=== PATIENT | male | born 1945 | race Caucasian/White ===

== ENCOUNTER → 2018-07-30 | Outpatient (CLI) | payer MEDICARE ==
[~2018-07-30] MED LIST: AMLODIPINE BESY10 MG PO; COLACE 100 MG100 MG PO; COUMADIN 5 MG TA5 M1 PO; ENOXAPARIN40 MG/0.1 SUBQ; HYDROCODON-ACE1 EAC7 PO; LISINOPRIL20 MG PO; METAMUCIL PACK3.4 GM PO; MULTI-VITAMIN1 EAC5 PO; OXYCODONE HCL 55 MG PO; TYLENOL325 MG PO
--- NOTE | 2018-07-30 14:01 | 2DMMODE ---
[place] [address] 2 D/M-MODE ECHOCARDIOGRAM Name: THELMA ROSAS [id number] Admission: 07/30/18 Attend Phys: Nava Rodas Discharge: Date of : 49 Date of Service: 07/30/18 1400 Report #: [id number] THIS REPORT FOR: //name// APPROVED REPORT Study performed: 07/30/2018 08:58:57 EXAM: Comprehensive 2D, Doppler, and color-flow Echocardiogram Patient Location: Out-Patient Status: routine BSA: 2.44 HR: 75 bpm BP: 150/80 mmHg Other Information Study Quality: Fair Indications Aortic Valve Disease Hypertension/HDD Aortic valve replacement 2D Dimensions IVSd: 16.12 (7-11mm) LVOT Diam: 21.99 (18-24mm) LVDd: 55.92 mm PWd: 13.78 (7-11mm) Ascending Ao: 34.33 (22-36mm) LVDs: 35.00 (25-40mm) Aortic Root: 37.43 mm Volumes Left Atrial Volume (Systole) LA ESV Index: 19.10 mL/m2 Aortic Valve AoV Peak Luis Carlos.: 2.25 m/s AO Peak Gr.: 20.23 mmHg LVOT Max P.94 mmHg AO Mean Gr.: 10.88 mmHg LVOT Mean P.60 mmHg LVOT Max V: 0.86 m/s AO V2 VTI: 47.07 cm LVOT Mean V: 0.59 m/s ALEX (VTI): 1.68 cm2 LVOT V1 VTI: 20.79 cm Mitral Valve E/A Ratio: 0.93 MV Decel. Time: 234.13 [place] [address] 2 D/M-MODE ECHOCARDIOGRAM Name: THELMA ROSAS Room: [facility]#: [id number] Admission: 07/30/18 Attend Phys: Nava Rodas Discharge: Date of : 49 Date of Service: 07/30/18 [facility] Report #: [id number] MV E Max Luis Carlos.: 0.96 m/s MV PHT: 67.90 ms MVA (PHT): 3.24 cm2 TDI E/Lateral E': 10.67 E/Medial E': 16.00 Medial E' Luis Carlos.: 0.06 m/s Lateral E' Luis Carlos.: 0.09 m/s Pulmonary Valve PV Peak Luis Carlos.: 1.04 m/s PV Peak Gr.: 4.32 mmHg Left Ventricle The left ventricle is normal size. There is normal LV segmental wall motion. Paradoxical septal motion consistent with paced rhythm. Mild concentric left ventricular hypertrophy. Left ventricular systolic function is normal. The left ventricular ejection fraction is within the normal range. LVEF is 50-55%. Grade I - abnormal relaxation pattern. Right Ventricle The right ventricle is normal size. The right ventricular systolic function is normal. Atria Left atrium is moderately dilated. The right atrium size is normal. Aortic Valve Poorly visualized AVR structure. Mechanical aortic valve is present. [facility] Mild aortic regurgitation. There is no aortic valvular stenosis.mean gradient <15mmHg. Mitral Valve There is mild mitral annular calcification. Mitral valve leaflets are mildly thickened. There is no mitral valve regurgitation noted. No evidence of mitral valve stenosis. Tricuspid Valve The tricuspid valve is normal in structure. There is no tricuspid valve regurgitation noted. Pulmonic Valve The pulmonary valve is normal in structure. [place] [address] 2 D/M-MODE ECHOCARDIOGRAM Name: THELMA ROSAS Room: [facility]#: [id number] Admission: 07/30/18 Attend Phys: Nava Rodas Discharge: Date of : 49 Date of Service: 07/30/18 1400 Report #: [id number] Great Vessels The aortic root is normal in size. IVC is normal in size and collapses >50% with inspiration. Pericardium There is no pericardial effusion. <Conclusion> LVEF is 50-55%. There is normal LV segmental wall motion. Mechanical aortic valve is present. [facility] There is no aortic valvular stenosis.mean gradient <15mmHg. Mild aortic regurgitation. There is mild mitral annular calcification. Mitral valve leaflets are mildly thickened. No evidence of mitral valve stenosis. There is no mitral valve regurgitation noted. Left atrium is moderately dilated. Grade I - abnormal relaxation pattern. <ELECTRONICALLY SIGNED> By: Rufus Samaniego MD, FACC 07/30/18 1400 1400 1400 Rufus Samaniego MD, FACC /INF
== END ==
LOC: M.CRD 08:45
DX: I10 Essential (primary) hypertension (principal); I35.1 Nonrheumatic aortic (valve) insufficiency; Z95.2 Presence of prosthetic heart valve; Z95.4 Presence of other heart-valve replacement

== ENCOUNTER 2019-05-19 18:29 | Emergency (ER) | payer MEDICARE ==
[~2019-05-19] VITALS: Ht 177.8 cm; Wt 127.0 kg
[2019-05-19 19:35] LABS: ABSOLUTE BASOPHILS 0.1 thou/uL (0.0-0.2); ABSOLUTE EOSINOPHILS 0.3 thou/uL (0.0-0.7); ABSOLUTE LYMPHOCYTES 1.6 thou/uL (0.8-5.3); ABSOLUTE MONOCYTES 0.4 thou/uL (0.0-1.2); ABSOLUTE NEUTROPHILS 5.5 thou/uL (1.6-8.1); EOSINOPHILS 3.3 %; HEMATOCRIT 34.3 % (42.0-52.0); HEMOGLOBIN 11.7 gm/dL (14.0-18.0); LYMPHOCYTES 20.2 %; MCH 28.8 pg (26.0-34.0); MCHC 34.2 g/dL (28.0-37.0); MCV 84.3 fL (80.0-100.0); MONOCYTES 5.3 %; MPV 6.5 fl. (7.2-11.1); NUCLEATED RBCS 0 /100WBC; PLATELET COUNT* 237 thou/uL (150-400); POLYS 70.2 %; RBC 4.07 mil/uL (4.50-6.00); RDW-CV 14.9 % (10.5-14.5); WBC 7.8 thou/uL (4.0-11.0)
[2019-05-19 19:42] LABS: INR 2.3; PROTIME 22.9 Seconds (9.20-11.50)
[2019-05-19 19:43] LABS: CALCIUM 8.8 mg/dL (8.5-10.1); CREATININE 1.1 mg/dL (0.6-1.3); POTASSIUM 4.2 mmol/L (3.5-5.1)
[2019-05-19 19:47] LABS: ALBUMIN 3.8 g/dL (3.4-5.0); TOTAL BILIRUBIN 0.3 mg/dL (<0.1-1.0); TOTAL PROTEIN 6.9 g/dL (6.4-8.2)
[2019-05-19 20:49] VITALS: BP 145/80
== END 2019-05-19 20:50 | disposition home or self-care (01) ==
LOC: M.ERS 18:29
PROVIDERS: Emergency Medicine
DX: K64.4 Residual hemorrhoidal skin tags (principal); K92.1 Melena; F17.200 Nicotine dependence, unspecified, uncomplicated; Z86.2 Personal history of diseases of the blood and blood-forming organs and certain disorders involving the immune mechanism; Z88.5 Allergy status to narcotic agent

== ENCOUNTER → 2019-07-30 | Outpatient (CLI) | payer MEDICARE ==
--- NOTE | 2019-07-30 13:45 | 2DMMODE ---
[place] [address] 2 D/M-MODE ECHOCARDIOGRAM Name: THELMA ROSAS [facility] [id number] Admission: 07/30/19 Attend Phys: Nava Rodas Discharge: Date of : 49 Date of Service: 07/30/19 1344 Report #: [id number] THIS REPORT FOR: cc: Ioana Tucker,Ioana Naranjo,Patrick Gomez MD [facility] ~ THIS REPORT FOR: //name// APPROVED REPORT Study performed: 07/30/2019 08:47:23 EXAM: Comprehensive 2D, Doppler, and color-flow Echocardiogram Patient Location: Out-Patient BSA: 2.43 HR: 80 bpm BP: 130/60 mmHg Other Information Study Quality: Fair Indications Aortic Valve Disease Hypertension/HDD 2D Dimensions IVSd: 15.91 (7-11mm) LVOT Diam: 21.09 (18-24mm) LVDd: 57.40 mm PWd: 14.11 (7-11mm) Ascending Ao: 36.24 (22-36mm) LVDs: 44.25 (25-40mm) Aortic Root: 36.92 mm Volumes Left Atrial Volume (Systole) LA ESV Index: 27.20 mL/m2 Aortic Valve AoV Peak Luis Carlos.: 2.61 m/s AO Peak Gr.: 27.22 mmHg LVOT Max P.04 mmHg AO Mean Gr.: 14.77 mmHg LVOT Mean P.62 mmHg LVOT Max V: 0.87 m/s AO V2 VTI: 47.15 cm LVOT Mean V: 0.60 m/s ALEX (VTI): 1.43 cm2 LVOT V1 VTI: 19.28 [place] [address] 2 D/M-MODE ECHOCARDIOGRAM Name: THELMA ROSAS Room: [facility]#: [id number] Admission: 07/30/19 Attend Phys: Nava Rodas Discharge: Date of : 49 Date of Service: 07/30/19 1344 Report #: [id number] Mitral Valve E/A Ratio: 0.85 MV Decel. Time: 225.84 ms MV E Max Luis Carlos.: 0.92 m/s MV PHT: 65.49 ms MVA (PHT): 3.36 cm2 TDI E/Lateral E': 13.14 E/Medial E': 18.40 Medial E' Luis Carlos.: 0.05 m/s Lateral E' Luis Carlos.: 0.07 m/s Pulmonary Valve PV Peak Luis Carlos.: 1.19 m/s PV Peak Gr.: 5.71 mmHg Left Ventricle The left ventricle is normal size. paradoxical septal motion consistent with a LBBB Mild concentric left ventricular hypertrophy. Left ventricular systolic function is mildly decreased. LVEF is 45-50%. Grade I - abnormal relaxation pattern. Right Ventricle The right ventricle is normal size. The right ventricular systolic function is normal. Atria The left atrium size is normal. The right atrium size is normal. Aortic Valve Mechanical aortic valve is present. [facility] Moderate aortic regurgitation. There is no aortic valvular stenosis. Mitral Valve Mild mitral annular calcification. There is no mitral valve regurgitation noted. No evidence of mitral valve stenosis. Tricuspid Valve The tricuspid valve is normal in structure. There is no tricuspid valve regurgitation noted. Pulmonic Valve The pulmonary valve is normal in structure. [place] [address] 2 D/M-MODE ECHOCARDIOGRAM Name: THELMA ROSAS Room: [facility]#: [id number] Admission: 07/30/19 Attend Phys: Nava Rodas Discharge: Date of : 49 Date of Service: 07/30/19 1344 Report #: [id number] Great Vessels The aortic root is normal in size. IVC is normal in size and collapses >50% with inspiration. Pericardium There is no pericardial effusion. <Conclusion> Mild concentric left ventricular hypertrophy. LVEF is 45-50%. Mechanical aortic valve is present. [facility] Moderate aortic regurgitation. <ELECTRONICALLY SIGNED> By: Patrick Houser MD, FACC 07/30/19 1344 1344 1344 Patrick Houser MD, FACC /INF
== END ==
LOC: M.CRD 08:42
DX: I08.8 Other rheumatic multiple valve diseases (principal); I10 Essential (primary) hypertension; Z88.8 Allergy status to other drugs, medicaments and biological substances; Z95.2 Presence of prosthetic heart valve

== ENCOUNTER → 2020-04-27 | Outpatient (CLI) | payer MEDICARE ==
[~2020-04-27] MED LIST changes: +FLOMAX0.4 MG PO; +LUPRON DEPOT11.25 MG IM; +PRINIVIL40 MG PO; +XTANDI40 MG PO
[2020-04-27 09:36] LABS: ABSOLUTE EOSINOPHILS 0.3 thou/uL (0.0-0.7); ABSOLUTE LYMPHOCYTES 0.8 thou/uL (0.8-5.3); ABSOLUTE MONOCYTES 0.4 thou/uL (0.0-1.2); ABSOLUTE NEUTROPHILS 4.4 thou/uL (1.6-8.1); BASOPHILS 0.6 %; EOSINOPHILS 4.5 %; HEMATOCRIT 35.4 % (42.0-52.0); HEMOGLOBIN 11.9 gm/dL (14.0-18.0); MCH 27.3 pg (26.0-34.0); MCHC 33.6 g/dL (28.0-37.0); MCV 81.5 fL (80.0-100.0); MONOCYTES 7.2 %; NUCLEATED RBCS 0 /100WBC; PLATELET COUNT* 228 thou/uL (150-400); POLYS 73.7 %; RBC 4.35 mil/uL (4.50-6.00); RDW-CV 16.9 % (10.5-14.5)
[2020-04-27 09:44] LABS: APTT 43.3 Seconds (25.0-31.3); PROTIME 27.5 Seconds (9.20-11.50)
[2020-04-27 09:51] LABS: INR 2.8
[2020-04-27 09:54] LABS: ALBUMIN 3.4 g/dL (3.4-5.0); CREATININE 1.7 mg/dL (0.6-1.3); POTASSIUM 4.6 mmol/L (3.5-5.1); TOTAL BILIRUBIN 0.4 mg/dL (<0.1-1.0); TOTAL PROTEIN 7.4 g/dL (6.4-8.2)
--- NOTE | 2020-04-27 11:16 | EKG ---
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: : 1945 Requested By: Patrick Silva Order Number: [id number] Turner MD: Patrick Houser Measurements Intervals [place] Rate: 81 P: 40 LA: 196 QRS: 23 QRSD: 158 T: 152 QT: 448 QTc: 520 Interpretive Statements Sinus rhythm Left bundle branch block Compared to ECG 04/26/2017 09:07:14 Left bundle-branch block now present Electronically Signed On 04-27-2020 11:16:18 NURSES EDUCATOR by Patrick Houser [email or web address] <ELECTRONICALLY SIGNED> By: Patrick Houser MD, FAC 04/27/20 1116 1004 1004 Patrick Houser MD, [facility] /EPI
[2020-04-27 12:12] LABS: ESR (SEDRATE) 39 mm/hr (0-20)
[2020-04-28 02:06] LABS: GLYCOHEMOGLOBIN (HGB A1C) 5.1 % (4.8-5.6)
== END ==
LOC: M.LAB 09:13
PROVIDERS: ATTEND Orthopaedic Surgery
DX: I49.9 Cardiac arrhythmia, unspecified (principal); I44.7 Left bundle-branch block, unspecified

== ENCOUNTER 2020-05-03 10:14 | Inpatient (IN) | payer MEDICARE ==
[~2020-05-03] VITALS: Ht 180.3 cm; Wt 123.4 kg
[2020-05-03 11:00] VITALS: BP 151/70
[2020-05-03 11:09] LABS: PROTIME 10.9 Seconds (9.20-11.50)
[2020-05-03 17:00] VITALS: BP 122/74
[2020-05-03 22:20] VITALS: BP 139/71
[2020-05-04] VITALS (7 sets, daily range): BP systolic 102–138; BP diastolic 45–58
[2020-05-04 04:41] LABS: HEMATOCRIT 26.8 % (42.0-52.0); HEMOGLOBIN 9.1 gm/dL (14.0-18.0)
[2020-05-04 04:43] LABS: INR 1.1; PROTIME 11.3 Seconds (9.20-11.50)
[2020-05-05 01:05] VITALS: BP 99/46
[2020-05-05 04:51] LABS: HEMATOCRIT 22.7 % (42.0-52.0); HEMOGLOBIN 7.7 gm/dL (14.0-18.0)
[2020-05-05 05:09] LABS: INR 1.2; PROTIME 12.9 Seconds (9.20-11.50)
--- NOTE | 2020-05-05 06:50 | OP ---
[address] [address] OPERATIVE REPORT Name: ALISONTHELMA LEE Room: [address] [place] .R.#: [id number] Admission: 05/04/20 Attend Phys: Luisa Morrow Discharge: Date of : 49 Report #: [id number] THIS REPORT FOR: //name// cc: Ioana Tucker Linda J. DO ~ CC: Patrick Mcnair DICTATED BY: Jose Rangel DO DATE OF SERVICE: 05/03/2020 PREOPERATIVE DIAGNOSIS: Left knee degenerative joint disease. POSTOPERATIVE DIAGNOSIS: Left knee degenerative joint disease. PROCEDURE PERFORMED: Left total knee arthroplasty utilizing Arun Persona total knee system with the following components: 1. A size 11 narrow femoral component. 2. A size H tibial baseplate. 3. A size 35 mm all poly patella. 4. A 10 mm medial congruent polyethylene spacer. SURGEON: Patrick Silva DO TESTING SHAKING SHIPPING: Jose Rangel DO and James John DO ANTIBIOTICS: 2 grams Ancef IV preoperatively. ANESTHESIA: General. ESTIMATED BLOOD LOSS: 200 mL. SPECIMENS: None. COMPLICATIONS: None. DISPOSITION: Stable to PACU. INDICATIONS FOR PROCEDURE: This is a pleasant 74-year-old male who has been seen and examined in the outpatient orthopedic clinic with regards to left knee pain. Radiographs demonstrated advanced degenerative joint disease with joint space narrowing, osteophytic lipping and subchondral sclerosis. He tried and failed conservative treatments including activity modification, anti-inflammatories and intra-[place] [address] OPERATIVE REPORT Name: THELMA ROSAS Room: [address] [place] .R.#: [id number] Admission: 05/04/20 Attend Phys: Luisa Morrow Discharge: Date of : 49 Report #: [id number] underwent a right total knee arthroplasty approximately 3 years ago and has done very well with this. Risks, benefits, alternatives and complications of total knee arthroplasty were discussed with the patient and he wished to proceed. DESCRIPTION OF PROCEDURE: The patient was seen and examined in the preoperative holding area. The correct operative extremity was marked. Written consent was obtained. The patient was transferred to the operating room and placed supine on the operating table. He was given the benefit of general anesthesia. A well-padded tourniquet was placed in the left thigh. Left lower extremity was prepped and draped in the usual sterile fashion. Timeout was performed to verify the correct patient, procedure and operative extremity and all were in agreement. Tourniquet was then inflated to 300 mmHg. Procedure then began with a standard midline incision over the left knee. Sharp dissection was carried down to the level of the joint capsule. A medial parapatellar arthrotomy was performed. Medial periosteal sleeve was developed off the proximal tibia. Anterior horns of medial and lateral menisci were then excised. The patella was everted. The femoral canal was then drilled and the intramedullary femoral guide was placed. This was pinned into position at 5 degrees of valgus measuring a 10 mm cut off the distal femur. This was performed in the standard fashion. Excess bone was removed. Next, the AP femoral sizer was then placed to size the femur. Drill holes were made in 3 degrees of external rotation in relation to the posterior condylar axis. This was measured to a size 11. Size 11 cut block was then placed and pinned into position. The anterior, posterior and chamfer cuts were performed in the standard fashion. The cutting block was removed and all excess bone was removed. Attention was then turned to the tibia. The extramedullary tibial guide was placed and pinned into position measuring 10 mm off of the high lateral side. The tibial cut was then performed in standard fashion. The guide was removed and all excess bone was removed. The remainder of the medial and lateral menisci were then excised. The knee was then taken out in extension and a size 10 spacer block was inserted. There was noted to have full extension and was well balanced. The knee was then flexed back up and the tibia was trialed. A size H tibial baseplate was noted to have most appropriate fit. This was pinned into position. The trial femur was inserted as was the trial size 10 mm poly. The knee was taken through range of motion again noted to have full range of motion and was well balanced. The patella was then cut in a freehand fashion measured to a size 35 patella. This was drilled and the trial patellar button was inserted. The knee was again taken through range of motion with trial components: There was noted to be excellent patellar tracking. The knee was well balanced. There was full range of motion. The tibia was then reamed and punched and then the trial components were removed. The knee was thoroughly irrigated with pulsatile lavage. The knee was then injected with 60 mL of orthopedic cocktail. Cement was mixed on the back table. The final components were then cemented into position in standard fashion. All excess cement was removed. The trial poly was inserted. The knee was held into extension with compression to allow the cement to harden. After allowing the cement to harden, the final poly was then inserted. The [place] [address] OPERATIVE REPORT Name: VINODALANNELISETHELMA LEE Room: [address] [place] ..#: [id number] Admission: 05/04/20 Attend Phys: Luisa Morrow Discharge: Date of : 49 Report #: [id number] knee was again taken through range of motion and noted to have full range of motion with excellent stability. The knee was well balanced. The knee was again thoroughly irrigated with pulsatile lavage. The capsule was closed with #1 Vicryl in interrupted [id number] fashion followed by running #1 Stratafix suture. Subcutaneous layer was closed with 2-0 Vicryl in simple interrupted and inverted fashion followed by running 3-0 Stratafix. Dermabond skin glue was applied. Sterile dressing was applied. The patient was then awakened from anesthesia and transferred to the PACU in stable condition. The patient tolerated the procedure well. There were no complications. <ELECTRONICALLY SIGNED> By: Bob Hung DO 05/05/20 0650 1403 1437Dashauna Silva DO /ag
[2020-05-05 07:25] VITALS: BP 96/54
[2020-05-05 16:59] VITALS: BP 124/46
[2020-05-05 20:26] VITALS: BP 126/46
[2020-05-06 04:29] LABS: ABSOLUTE EOSINOPHILS 0.1 thou/uL (0.0-0.7); ABSOLUTE LYMPHOCYTES 0.7 thou/uL (0.8-5.3); ABSOLUTE MONOCYTES 0.4 thou/uL (0.0-1.2); ABSOLUTE NEUTROPHILS 4.8 thou/uL (1.6-8.1); BASOPHILS 0.7 %; EOSINOPHILS 1.5 %; HEMATOCRIT 22.1 % (42.0-52.0); HEMOGLOBIN 7.3 gm/dL (14.0-18.0); LYMPHOCYTES 11.1 %; MCH 27.3 pg (26.0-34.0); MCHC 33.1 g/dL (28.0-37.0); MCV 82.6 fL (80.0-100.0); MONOCYTES 6.9 %; MPV 6.3 fl. (7.2-11.1); NUCLEATED RBCS 0 /100WBC; PLATELET COUNT* 231 thou/uL (150-400); POLYS 79.8 %; RBC 2.67 mil/uL (4.50-6.00); RDW-CV 15.9 % (10.5-14.5); WBC 6.1 thou/uL (4.0-11.0)
[2020-05-06 04:45] LABS: INR 1.2
[2020-05-06 04:51] LABS: CALCIUM 8.5 mg/dL (8.5-10.1); CREATININE 2.3 mg/dL (0.6-1.3); POTASSIUM 3.9 mmol/L (3.5-5.1)
[2020-05-06 07:50] VITALS: BP 143/63
[2020-05-06 16:00] VITALS: BP 148/64
[2020-05-06 20:15] VITALS: BP 106/55
[2020-05-07] VITALS (7 sets, daily range): BP systolic 102–114; BP diastolic 49–58
[2020-05-07 04:59] LABS: INR 1.3; PROTIME 13.3 Seconds (9.20-11.50)
[2020-05-07] MEDS ORDERED: IRON325 PO (12:10)
[2020-05-07] MEDS ORDERED: ENOXAPARIN100 MG/11 SUBQ (12:10)
[2020-05-07] MEDS ORDERED: MIRALAX119 GM PO (12:10)
[2020-05-07] MEDS ORDERED: OXYCODONE HCL 55 MG PO (12:10)
== END 2020-05-07 16:40 | disposition home health service (06) | DRG 470 ==
LOC: M.PRE → M.TBA 10:14 → M.PRE 14:46 → M.3W 16:43
PROVIDERS: Internal Medicine; Orthopaedic Surgery; ADMIT Internal Medicine; ATTEND Internal Medicine
PROC: 0SRD0J9 Replacement of Left Knee Joint with Synthetic Substitute, Cemented, Open Approach (ICD-10-PCS; principal; 2020-05-03)
DX: M17.12 Unilateral primary osteoarthritis, left knee (principal); D62 Acute posthemorrhagic anemia; F17.210 Nicotine dependence, cigarettes, uncomplicated; Z88.6 Allergy status to analgesic agent; Z85.46 Personal history of malignant neoplasm of prostate; Z95.2 Presence of prosthetic heart valve; Z79.899 Other long term (current) drug therapy

== ENCOUNTER → 2020-08-30 | Outpatient (CLI) | payer MEDICARE ==
[~2020-08-30] MED LIST changes: +ENOXAPARIN100 MG/11 SUBQ; +IRON325 PO; +MIRALAX119 GM PO
--- NOTE | 2020-08-30 12:04 | 2DMMODE ---
[place] [address] 2 D/M-MODE ECHOCARDIOGRAM Name: CARLIEMERTHELMA LEE [facility] [id number] Admission: 08/30/20 Attend Phys: Nava Rodas Discharge: Date of : 49 Date of Service: 08/30/20 1204 Report #: [id number] THIS REPORT FOR: cc: Ioana Tucker,Ioana Thorne,Jason Nguyen MD [facility] ~ APPROVED REPORT Study performed: 08/30/2020 08:48:45 EXAM: Comprehensive 2D, Doppler, and color-flow Echocardiogram Patient Location: Out-Patient BSA: 2.42 HR: 83 bpm BP: 130/60 mmHg Other Information Study Quality: Good Indications Aortic Valve Disease Hypertension/HDD Hx. of Aortic Valve replacement 2D Dimensions IVSd: 12.11 (7-11mm) LVOT Diam: 22.45 (18-24mm) LVDd: 69.27 mm PWd: 10.88 (7-11mm) Ascending Ao: 29.03 (22-36mm) LVDs: 59.82 (25-40mm) Aortic Root: 37.99 mm Volumes Left Atrial Volume (Systole) LA ESV Index: 23.80 mL/m2 Aortic Valve AoV Peak Luis Carlos.: 1.83 m/s AO Peak Gr.: 13.35 mmHg LVOT Max P.34 mmHg AO Mean Gr.: 6.34 mmHg LVOT Mean P.21 mmHg LVOT Max V: 0.77 m/s AO V2 VTI: 34.43 cm LVOT Mean V: 0.51 m/s ALEX (VTI): 1.75 cm2 LVOT V1 VTI: 15.24 cm AI Harlan: 3.09 m/s2 [place] [address] 2 D/M-MODE ECHOCARDIOGRAM Name: THELMA ROSAS [id number] Admission: 08/30/20 Attend Phys: Nava Rodas Discharge: Date of : 49 Date of Service: 08/30/20 1204 Report #: [id number] AI PHT: 369.76 ms Mitral Valve MV Peak Gr.: 7.90 mmHg MV Mean Gr.: 3.30 mmHg E/A Ratio: 1.60 MV Decel. Time: 165.76 ms MV E Max Luis Carlos.: 1.22 m/s MV PHT: 48.07 ms MVA (PHT): 4.58 cm2 TDI E/Lateral E': 12.20 E/Medial E': 17.43 Medial E' Luis Carlos.: 0.07 m/s Lateral E' Luis Carlos.: 0.10 m/s Pulmonary Valve PV Peak Luis Carlos.: 0.94 m/s PV Peak Gr.: 3.52 mmHg Tricuspid Valve RAP Estimate: 5.00 mmHg TR Peak Gr.: 34.27 mmHg RVSP: 39.27 mmHg PA Pressure: 39.27 mmHg Left Ventricle Left ventricle is moderately dilated. There is diffuse hypokinesis of left ventricular wall motion. There is normal left ventricular wall thickness. Left ventricular systolic function is severely decreased. LVEF is 25%. This study is not technically sufficient to allow evaluation of the LV diastolic function. Right Ventricle The right ventricle is normal size. The right ventricular systolic function is normal. Atria Left atrium is mildly dilated. The right atrium size is normal. Aortic Valve Mechanical aortic valve is present. Mild to moderate aortic regurgitation. No hemodynamically significant valvular aortic stenosis. Mitral Valve Mild mitral annular calcification. Mild mitral regurgitation. No evidence [place] [address] 2 D/M-MODE ECHOCARDIOGRAM Name: VINODALANNELISETHELMA LEE [facility]#: [id number] Admission: 08/30/20 Attend Phys: Nava Rodas Discharge: Date of : 49 Date of Service: 08/30/20 1204 Report #: [id number] Tricuspid Valve The tricuspid valve is normal in structure. Mild tricuspid regurgitation. Pulmonic Valve The pulmonary valve is normal in structure. There is no pulmonic valvular regurgitation. Great Vessels The aortic root is normal in size. IVC is normal in size and collapses >50% with inspiration. Pericardium There is no pericardial effusion. <Conclusion> Left ventricle is moderately dilated. There is normal left ventricular wall thickness. Left ventricular systolic function is severely decreased. LVEF is 25%. The right ventricle is normal size. Left atrium is mildly dilated. Mild to moderate aortic regurgitation. No hemodynamically significant valvular aortic stenosis. Mild mitral annular calcification. Mild mitral regurgitation. The tricuspid valve is normal in structure. Mild tricuspid regurgitation. IVC is normal in size and collapses >50% with inspiration. There is no pericardial effusion. There is diffuse hypokinesis of left ventricular wall motion. Mechanical aortic valve is present. <ELECTRONICALLY SIGNED> By: Jason Valdovinos MD, FACC 08/30/20 1204 1204 1204 Jason Valdovinos MD, FACC /INF
== END ==
LOC: M.CRD 08:46
PROVIDERS: ATTEND Internal Medicine
DX: I08.3 Combined rheumatic disorders of mitral, aortic and tricuspid valves (principal); Z95.2 Presence of prosthetic heart valve